=== PATIENT | female | born 1975 | race Caucasian/White ===

== ENCOUNTER 2017-11-16 14:59 | Emergency (ER) | payer OTHER ==
[~2017-11-16] VITALS: Ht 162.6 cm; Wt 140.6 kg
[2017-11-16] MEDS ORDERED: ASPIRIN 81 MG CHEW TAB PO ONE (15:15)
[2017-11-16 15:36] LABS: BASOPHILS % 0.7 % (0.0-1.0); EOSINOPHILS # (AUTO) 0.3 (0.0-0.4); EOSINOPHILS % 4.3 % (0.0-6.0); HEMATOCRIT 36.4 % (34.2-44.1); HEMOGLOBIN 11.1 g/dL (12.0-16.0); LYMPHOCYTES # (AUTO) 2.1 (1.0-3.2); LYMPHOCYTES % 35.3 % (18.0-39.1); MEAN CORPUSCULAR HEMOGLOBIN 23.5 pg (28-32); MEAN CORPUSCULAR HGB CONC 30.5 g/dL (31-35); MONOCYTES # (AUTO) 0.5 (0.2-0.8); MONOCYTES % 7.6 % (4.4-11.3); NEUTROPHILS # (AUTO) 3.2 (2.1-6.9); NEUTROPHILS % 51.9 % (38.7-80.0); PLATELET COUNT 213 x10e3/uL (140-360); RED BLOOD COUNT 4.73 x10e6/uL (3.6-5.1); RED CELL DISTRIBUTION WIDTH 16.6 % (11.7-14.4)
[2017-11-16 15:47] LABS: INR 1.01; PROTHROMBIN TIME 12.5 seconds (11.9-14.5)
[2017-11-16 15:48] LABS: PARTIAL THROMBOPLASTIN TIME 26.7 seconds (23.8-35.5)
[2017-11-16 15:54] LABS: ALANINE AMINOTRANSFERASE 34 IU/L (0-55); ALBUMIN 3.8 g/dL (3.5-5.0); ALBUMIN/GLOBULIN RATIO 0.9 (0.8-2.0); ALKALINE PHOSPHATASE 95 IU/L (40-150); ANION GAP 16.8 mmol/L (8-16); BLOOD UREA NITROGEN 15 mg/dL (7-26); BUN/CREATININE RATIO 18 (6-25); CALCIUM 9.2 mg/dL (8.4-10.2); CARBON DIOXIDE 21 mmol/L (22-29); CHLORIDE 108 mmol/L (98-107); CREATINE KINASE 378 IU/L (29-168); CREATININE, SERUM 0.82 mg/dL (0.57-1.11); EST GLOMERULAR FILTRATION RATE > 60 ML/MIN (60-); GLUCOSE 107 mg/dL (74-118); POTASSIUM 4.8 mmol/L (3.5-5.1); SODIUM 141 mmol/L (136-145)
--- NOTE | 2017-11-16 16:45 | Diagnostic Imaging Report ---
PROCEDURE: A single AP view of the chest. COMPARISON: None. INDICATIONS: CHEST PAIN FINDINGS: Lines/tubes: None. Lungs: The lungs are well inflated and clear. There is no evidence of pneumonia or pulmonary edema. Pleura: There is no pleural effusion or pneumothorax. Heart and mediastinum: The heart and the mediastinum are unremarkable. Bones: No acute bony abnormality. IMPRESSION: 1. No acute cardiopulmonary disease. Dictated by: Rajiv Moncada M.D. on 11/16/2017 at 16:51 Electronically approved by: Rajiv Moncada M.D. on 11/16/2017 at 16:51
[2017-11-16 17:02] LABS: COLOR,URINE YELLOW (YELLOW)
[2017-11-16 17:03] LABS: BILIRUBIN,URINE NEGATIVE (NEGATIVE); CLARITY,URINE CLEAR (CLEAR); KETONES,URINE NEGATIVE (NEGATIVE); LEUKOCYTE ESTERASE ,URINE NEGATIVE (NEGATIVE); NITRITE,URINE NEGATIVE (NEGATIVE); PROTEIN,URINE DIPSTICK NEGATIVE (NEGATIVE); URINE UROBILINOGEN 0.2 mg/dL (0.2 - 1)
[2017-11-16 17:13] LABS: BACTERIA,URINE MODERATE /HPF; EPITHELIAL CELLS,URINE MODERATE /LPF; TRANSITIONAL EPI CELLS,URINE FEW
[2017-11-16 19:06] VITALS: BP 124/82
== END 2017-11-16 19:07 | disposition home or self-care (01) ==
LOC: ER 14:59
DX: R07.89 Other chest pain (principal); F41.9 Anxiety disorder, unspecified
CPT/HCPCS: 36415; 71045; 80053; 81001; 82550; 82553; 84484; 84702; 85025; 85610; 85730; 87086; 93005; 99284

== ENCOUNTER → 2018-06-08 | Day surgery (SDC) | payer OTHER ==
[~2018-06-08] MED LIST: ASPIR 8181 MG PO; DONNATAL/LIDOCAINE/MAALOX 30 ML SUSP PO NR; FENTANYL CITRATE/PF 100MCG/2 ML INJ ONE; HYDROCHLOROTHIA25 MG PO; HYOSCYAMINE SULFATE 0.5 MG/ML INJ ONE; KETAMINE HCL INJ 50 MG/ML 10 ML VIAL ONE; LEVOXYL112 MCG PO; METOCLOPRAMIDE HCL 10 MG/2ML VIAL ONE; MIDAZOLAM HCL 2 MG/2 ML VIAL ONE; OMEPRAZOLE40 MG PO; PROPOFOL IV EMULSION 10 MG/ML 50 ML VIAL ONE
--- OUTSIDE RECORDS SUMMARY | 2018-06-08 10:59 | XMS REPORT ---
Author Author [facility] Address Unknown Phone Unavailable Care Team Providers [facility] [employer] [facility] Teacher Name Role Phone Rebeca LARA Unavailable Unavailable Problems This patient has no known problems. Allergies, Adverse Reactions, Alerts This patient has no known allergies or adverse reactions. Medications This patient has no known medications. Results Test Description Test Time Test Comments Text Results Atomic Results Result Comments CHEST SINGLE (PORTABLE) 2017-11-16 16:51:00 [place] [address] Patient Name: MORGAN REEDER MR #: [id number] : 1975 Age/Sex: 42/F Req #: [id number] Adm Physician: Ordered by: GABO BEJARANO RECLAMATION KETTLE TENDER Report #: [id number] Location: ER Room/Bed: Procedure: [id number] DX/CHEST SINGLE (PORTABLE) Exam Date: 11/16/17 Exam Time: 1620 REPORT STATUS: Signed PROCEDURE: A single AP view of the chest. COMPARISON: None. INDICATIONS: CHEST PAIN FINDINGS: Lines/tubes: None. Lungs: The lungs are well inflated and clear. There is no evidence of pneumonia or pulmonary edema. Pleura: There is no pleural effusion or pneumothorax. Heart and mediastinum: The heart and the mediastinum are unremarkable. Bones: No acute bony abnormality. IMPRESSION: 1. No acute cardiopulmonary disease. Dictated by: Javy Moncada M.D. on 11/16/2017 at 16:51 Electronically approved by: Javy Moncada M.D. on 11/16/2017 at 16:51 Dictated By: JAVY MONCADA MD 50 Transcribed By: NAI on 11/16/171650 COPY TO: GABO BEJARANO NP
[2018-06-08 14:55] VITALS: BP 113/80
--- NOTE | 2018-06-09 04:14 | Operative Report ---
DATE OF PROCEDURE: 06/08/2018 SURGEON: Pieter Sanchez MD PROCEDURES: Esophagogastroduodenoscopy with biopsies and colonoscopy. INDICATIONS FOR EGD: Upper abdominal pain, nausea, and vomiting. INDICATIONS FOR COLONOSCOPY: Abdominal pain, history of bright red blood per rectum in the recent past. MEDICATION: The patient was done under MAC, please see anesthesiologist's note. PROCEDURE IN DETAIL: With the patient in the left lateral decubitus position, a flexible fiberoptic Olympus gastroscope was introduced into the esophagus under direct visualization without any difficulty. There was some patchy erythema noted in the distal esophagus. The scope was then advanced with ease into the stomach. Mucosa overlying the antrum revealed some patchy intense erythema and low-grade to moderate edema and biopsies were obtained and sent to stain for H pylori. There was some mucosa overlying the mid and distal body along the anterior wall, was somewhat atrophic and the biopsies were obtained to rule out atrophic gastritis. There was an extrinsic compression also noted against the antrum, anterior wall. The scope was then advanced with ease to the second portion of the duodenum. Biopsies were obtained. The scope was then advanced with ease to the second portion of the duodenum. The mucosa overlying the second portion and the duodenal bulb revealed some patchy, mild inflammatory changes, and biopsies were obtained. The scope was then withdrawn back into the stomach and retroflexed. Mucosa overlying the fundus and the cardia appeared to be within normal limits. The scope was then straightened out, it was subsequently withdrawn. The patient tolerated the procedure well. IMPRESSION: 1. Mild distal esophagitis. 2. Rule out atrophic gastritis, body. 3. Extrinsic compression, antrum, anterior wall. 4. Duodenitis, mild. PLAN: Followup histology. Increase omeprazole to 40 mg one p.o. a.c. b.i.d. The patient will need a CT scan of the abdomen to delineate the nature of the extrinsic compression against the anterior wall of the antrum. The patient was then turned around after adequate lubrication of the anal canal. A flexible fiberoptic Olympus colonoscope was inserted into the rectum with ease and advanced all the way to the cecum, it was then withdrawn slowly. Mucosa overlying the cecum, ascending colon, transverse, descending, sigmoid, and rectum appeared to be within normal limits. The scope was then retroflexed into the distal rectum. Moderate-sized internal hemorrhoids were noted, none of which was actively bleeding. The scope was then straightened out, it was subsequently withdrawn. The patient tolerated the procedure well. IMPRESSION: Internal hemorrhoids, none actively bleeding. PLAN: Initiate high-fiber and low-fat diet. Initiate high-fiber supplement. The patient might benefit from a followup colonoscopy in 10 years. MD RICHARD Jasmine/VELIA /[id number] cc: Marcus Rogers DO
== END | disposition home or self-care (01) ==
LOC: OR 10:57
PROVIDERS: ATTEND Internal Medicine Gastroenterology
DX: K29.70 Gastritis, unspecified, without bleeding (principal); K31.89 Other diseases of stomach and duodenum; K20.9 Esophagitis, unspecified; K29.80 Duodenitis without bleeding; K64.8 Other hemorrhoids; G47.33 Obstructive sleep apnea (adult) (pediatric); E03.9 Hypothyroidism, unspecified; R03.0 Elevated blood-pressure reading, without diagnosis of hypertension; Z01.810 Encounter for preprocedural cardiovascular examination; Z79.82 Long term (current) use of aspirin; E66.01 Morbid (severe) obesity due to excess calories; Z68.43 Body mass index [BMI] 50.0-59.9, adult
CPT/HCPCS: 43239; 45378; 93005; J1980; J2250; J2704; J2765

== ENCOUNTER 2018-06-15 13:34 | Inpatient (IN) | payer OTHER ==
[~2018-06-15] VITALS: Ht 162.6 cm; Wt 132.4 kg
[~2018-06-15 13:34] MED LIST changes: -DONNATAL/LIDOCAINE/MAALOX 30 ML SUSP PO NR; -FENTANYL CITRATE/PF 100MCG/2 ML INJ ONE; -HYOSCYAMINE SULFATE 0.5 MG/ML INJ ONE; -KETAMINE HCL INJ 50 MG/ML 10 ML VIAL ONE; -METOCLOPRAMIDE HCL 10 MG/2ML VIAL ONE; -MIDAZOLAM HCL 2 MG/2 ML VIAL ONE; -PROPOFOL IV EMULSION 10 MG/ML 50 ML VIAL ONE
[2018-06-15 14:36] LABS: BASOPHILS % 0.3 % (0.0-1.0); EOSINOPHILS # (AUTO) 0.3 (0.0-0.4); EOSINOPHILS % 4.2 % (0.0-6.0); HEMATOCRIT 36.2 % (34.2-44.1); HEMOGLOBIN 10.7 g/dL (12.0-16.0); LYMPHOCYTES # (AUTO) 2.2 (1.0-3.2); LYMPHOCYTES % 34.6 % (18.0-39.1); MEAN CORPUSCULAR HEMOGLOBIN 22.7 pg (28-32); MEAN CORPUSCULAR HGB CONC 29.6 g/dL (31-35); MEAN CORPUSCULAR VOLUME 76.7 fL (81-99); MONOCYTES # (AUTO) 0.4 (0.2-0.8); MONOCYTES % 6.8 % (4.4-11.3); NEUTROPHILS # (AUTO) 3.4 (2.1-6.9); NEUTROPHILS % 53.5 % (38.7-80.0); PLATELET COUNT 379 x10e3/uL (140-360); RED BLOOD COUNT 4.72 x10e6/uL (3.6-5.1); RED CELL DISTRIBUTION WIDTH 16.8 % (11.7-14.4)
[2018-06-15 14:53] LABS: CLARITY,URINE CLEAR (CLEAR); COLOR,URINE YELLOW (YELLOW); KETONES,URINE NEGATIVE (NEGATIVE); LEUKOCYTE ESTERASE ,URINE NEGATIVE (NEGATIVE); NITRITE,URINE NEGATIVE (NEGATIVE); PROTEIN,URINE DIPSTICK NEGATIVE (NEGATIVE); URINE UROBILINOGEN 1 mg/dL (0.2 - 1)
[2018-06-15 14:54] LABS: PREGNANCY TEST, URINE NEGATIVE (NEGATIVE)
[2018-06-15 14:57] LABS: ALANINE AMINOTRANSFERASE 40 IU/L (0-55); ALBUMIN 3.1 g/dL (3.5-5.0); ALBUMIN/GLOBULIN RATIO 0.7 (0.8-2.0); ALKALINE PHOSPHATASE 115 IU/L (40-150); ANION GAP 16.8 mmol/L (8-16); BLOOD UREA NITROGEN 8 mg/dL (7-26); BUN/CREATININE RATIO 10 (6-25); CARBON DIOXIDE 28 mmol/L (22-29); CHLORIDE 97 mmol/L (98-107); CREATININE, SERUM 0.78 mg/dL (0.57-1.11); EST GLOMERULAR FILTRATION RATE > 60 ML/MIN (60-); GLUCOSE 93 mg/dL (74-118); SODIUM 139 mmol/L (136-145)
[2018-06-15 15:03] LABS: BACTERIA,URINE FEW /HPF; BILIRUBIN,URINE NEGATIVE (NEGATIVE); EPITHELIAL CELLS,URINE MODERATE /LPF
[2018-06-15 15:05] LABS: POTASSIUM 2.8 mmol/L (3.5-5.1)
[2018-06-15 15:42] LABS: AMYLASE 41 U/L (25-125); LIPASE 47 U/L (8-78)
--- NOTE | 2018-06-15 16:30 | Diagnostic Imaging Report ---
EXAM: CT Abdomen and Pelvis WITH contrast INDICATION: Abdominal Pain COMPARISON: None. TECHNIQUE: Abdomen and pelvis were scanned utilizing a multidetector helical scanner from the lung base to the pubic symphysis after administration of IV contrast. Coronal and sagittal reformations were obtained. Routine protocol was performed. Scan was performed when during portal venous phase. IV CONTRAST: 100 cc of Isovue 370 ORAL CONTRAST: Water COMPLICATIONS: None RADIATION DOSE: Total DLP: 896.4 mGy*cm Dose modulation, iterative reconstruction, and/or weight based adjustment of the mA/kV was utilized to reduce the radiation dose to as low as reasonably achievable. FINDINGS: LINES and TUBES: None. LOWER THORAX: Patchy dependent atelectasis. HEPATOBILIARY: Diffuse mild fatty liver. No evidence of focal lesion. No biliary ductal dilation. GALLBLADDER: There is a gallstone measuring up to 3.3 cm at the gallbladder neck with associated gallbladder distention and wall thickening measuring up to 8 mm. There is mild surrounding edema and inflammatory changes. SPLEEN: No splenomegaly. PANCREAS: No focal masses or ductal dilatation. ADRENALS: No adrenal nodules KIDNEYS/URETERS: Kidneys enhance symmetrically. No evidence of hydronephrosis, solid mass, or stone. GI TRACT: No evidence of wall thickening or distension. Appendix is normal. PELVIC ORGANS/BLADDER: Unremarkable. LYMPH NODES: No lymphadenopathy. VESSELS: Unremarkable. PERITONEUM / RETROPERITONEUM: No free air or fluid. BONES AND SOFT TISSUES: No acute osseous abnormality. No suspicious lytic or blastic lesions. Mild scattered degenerative changes. CONCLUSION: CT findings of acute calculus cholecystitis. No evidence of abscess. Diffuse mild fatty liver. Signed by: Dr. Rika Marks MD on 06/15/2018 4:27 PM
[2018-06-15] MEDS ORDERED: PIPER-TAZ 3.375 GM 50 ML IV SCH (17:00)
[2018-06-15] MEDS ORDERED: SODIUM CHLORIDE 0.9% IV SCH (17:17)
[2018-06-15] MEDS ORDERED: POTASSIUM CHLORIDE 20 MEQ TAB CR PO STA (17:17)
[2018-06-15] MEDS ORDERED: POTASSIUM CHLORIDE IV SCH (17:17)
[2018-06-15] MEDS ORDERED: HYDROMORPHONE 1MG/1ML INJ IV PRN (17:30)
[2018-06-15] MEDS ORDERED: POTASSIUM CHL 40 MEQ in SODIUM CHLORIDE 0.9% 1000ML 1,000 ML IV SCH (17:30)
[2018-06-15] MEDS ORDERED: SODIUM CHLORIDE 0.9% 250ML 250 ML ONE (17:35)
[2018-06-15] MEDS ORDERED: HYDROMORPHONE 2MG/ML 2 MG/ML ML IV PRN (17:45)
[2018-06-15] MEDS ORDERED: POTASSIUM CHLORIDE 40 MEQ in SODIUM CHLORIDE 0.9% 1000ML 1,000 ML IV SCH (17:45)
[2018-06-15] MEDS ORDERED: POTASSIUM CHLORIDE 10MEQ/100ML 100 ML IV SCH ×2 (18:00)
[2018-06-15] MEDS ORDERED: IOPAMIDOL 370 MG/ML 200 ML INFUS..BTL INJ ONE (18:18)
[2018-06-15] MEDS ORDERED: SODIUM CHLORIDE 0.9% 50ML 50 ML ONE (18:18)
--- NOTE | 2018-06-15 18:23 | NUR ---
Patient admitted to unit from ER. patient arrived via stretcher. patient has been c/o abdominal pain for 1 week. pain noted on the right lower quadrant. Patient is NPO. Patient lung rock clear to auscultation. Bowel sounds present x4 and active. Patient c/o pain when she takes a deep breath. No nausea or vomiting at this time. Right AC IV in place with IV fluids infusing. patient ambulates on her own. no s/s of distress noted
[2018-06-15 18:40] VITALS: BP 135/89
[2018-06-15 18:44] VITALS: BP 135/89
--- NOTE | 2018-06-15 18:46 | Consultation ---
DATE OF CONSULTATION: REASON FOR CONSULTATION: Acute cholecystitis. HISTORY OF PRESENT ILLNESS: The patient is a 42-year-old female, admitted complaining of abdominal pain for several days located in the upper abdomen. She presented today to the emergency room because of the pain. A CT scan performed that revealed a large stone in the neck and changes consistent with acute cholecystitis. Because of this, she is being admitted. The patient's past history is significant for morbid obesity. She has a BMI of 53. She denies any medical problems; however, according to the ER records, there is a history of hypertension, hypothyroidism, and gastroesophageal reflux. She has history of back problems. No previous abdominal surgeries. ALLERGIES: SHE HAS NO KNOWN ALLERGIES. SOCIAL HISTORY: She does not drink and does not smoke. REVIEW OF SYSTEMS: Significant for what has been stated. PHYSICAL EXAMINATION: GENERAL: Reveals a 42-year-old morbidly obese female, who is in no acute distress. VITAL SIGNS: Temperature 98.4, blood pressure 139/105, and pulse oximeter 99. HEAD, EYES, EARS, NOSE, AND THROAT: Reveals no acute process. LUNGS: Clear. HEART: Reveals regular rhythm. ABDOMEN: Soft. There are no peritoneal signs at this point, but there is tenderness on deep palpation. LABORATORY DATA: Admission laboratories revealed a white count of 6.3 with a platelet count of 379. The admission chemistries revealed a low potassium of 2.8 with a normal set of liver function tests. The CT scan has been discussed. ASSESSMENT: Acute cholecystitis secondary to cholelithiasis, morbid obesity. PLAN: The plan is to replenish the potassium, hydrate the patient, and then proceed with laparoscopic cholecystectomy, possible open cholecystectomy in a.m. tomorrow. MD PRINCESS Ch/VELIA /[id number]
[2018-06-15] MEDS ORDERED: POTASSIUM CHLORIDE 20 MEQ TAB CR PO ONE (19:00)
[2018-06-15] MEDS: POTASSIUM CHLORIDE 20 MEQ in LACTATED RINGER'S 1,000 ML IV SCH (19:06)
[2018-06-15 20:00] VITALS: BP 121/70
[2018-06-15] MEDS: METRONIDAZOLE 750MG/NS 150ML 150 ML IV SCH (20:00)
--- NOTE | 2018-06-15 20:00 | NUR ---
ASSESSMENT DONE.AMBULATE.NO PAIN VOICED.VOIDED.BED LOCKED AN DIN LOWEST POSITION.PHONE AND CALL LIGHT WITHIN REACH.INSTRUCTED TO CALL FOR ASSISTANCE NEEDED. ON NPO.IV LAC #18 G PATENT.
[2018-06-15] MEDS: CEFTRIAXONE SOD 2 GM/NS 100 ML 100 ML IV SCH (20:10)
[2018-06-15 22:20] VITALS: BP 121/70
[2018-06-16] VITALS: BP 124/62
[2018-06-16] MEDS: POTASSIUM CHLORIDE 20 MEQ in LACTATED RINGER'S 1,000 ML IV SCH ×2 (02:00→10:10)
[2018-06-16] MEDS: METRONIDAZOLE 750MG/NS 150ML 150 ML IV SCH ×3 (02:00→21:53)
[2018-06-16 04:00] VITALS: BP 110/57
[2018-06-16 05:45] LABS: BASOPHILS % 0.4 % (0.0-1.0); EOSINOPHILS # (AUTO) 0.3 (0.0-0.4); EOSINOPHILS % 5.3 % (0.0-6.0); HEMATOCRIT 31.8 % (34.2-44.1); HEMOGLOBIN 9.2 g/dL (12.0-16.0); LYMPHOCYTES # (AUTO) 1.8 (1.0-3.2); LYMPHOCYTES % 35.6 % (18.0-39.1); MEAN CORPUSCULAR HEMOGLOBIN 22.4 pg (28-32); MEAN CORPUSCULAR HGB CONC 28.9 g/dL (31-35); MEAN CORPUSCULAR VOLUME 77.6 fL (81-99); MONOCYTES # (AUTO) 0.4 (0.2-0.8); MONOCYTES % 8.6 % (4.4-11.3); NEUTROPHILS # (AUTO) 2.5 (2.1-6.9); NEUTROPHILS % 49.5 % (38.7-80.0); PLATELET COUNT 336 x10e3/uL (140-360)
[2018-06-16 06:03] LABS: ANION GAP 12.3 mmol/L (8-16); BLOOD UREA NITROGEN 8 mg/dL (7-26); BUN/CREATININE RATIO 10 (6-25); CALCIUM 8.8 mg/dL (8.4-10.2); CARBON DIOXIDE 28 mmol/L (22-29); CHLORIDE 105 mmol/L (98-107); CREATININE, SERUM 0.78 mg/dL (0.57-1.11); EST GLOMERULAR FILTRATION RATE > 60 ML/MIN (60-); GLUCOSE 99 mg/dL (74-118); POTASSIUM 3.3 mmol/L (3.5-5.1); SODIUM 142 mmol/L (136-145)
--- NOTE | 2018-06-16 06:40 | NUR ---
RECEIVED NEW ORDERS FROM DR. AVILA .
--- NOTE | 2018-06-16 06:50 | NUR ---
RESTED WELL DURING NIGHT.REPORT GIVEN TO THE ONCOMING RN.WALKING ROUNDS DONE.STABLE CONDITION.
--- NOTE | 2018-06-16 07:00 | NUR ---
bedside rounds complete no distress noted, updated on poc voiced understanding, denies pain at this time, call light in reach will continue to monitor
[2018-06-16 07:12] LABS: FERRITIN 40.94 ng/mL (4.63-204.00)
[2018-06-16 07:25] LABS: FOLATE 11.7 ng/mL (7.0-15.4)
[2018-06-16] MEDS ORDERED: POTASSIUM CHLORIDE 20MEQ/100ML 100 ML IV ONE (07:30)
[2018-06-16 07:39] LABS: PLATELET ESTIMATE ADEQUATE; PLATELET MORPHOLOGY COMMENT NORMAL; RBC MORPHOLOGY COMMENT NORMAL
[2018-06-16 07:48] VITALS: BP 124/70
[2018-06-16] MEDS ORDERED: BUPIVACAINE 0.25%/EPI 30ML SDV INJ ONE (08:37)
[2018-06-16] MEDS ORDERED: SODIUM CHLORIDE 0.9% 250ML 250 ML ONE (09:58)
[2018-06-16 11:00] VITALS: BP 124/70
[2018-06-16] MEDS ORDERED: LEVOFLOXACIN 250MG/D5W 50ML 50 ML ONE (13:25)
[2018-06-16] MEDS ORDERED: LEVOFLOXACIN 500MG/D5W 100ML 100 ML IV ONE (13:25)
[2018-06-16] MEDS ORDERED: METOCLOPRAMIDE HCL 10 MG/2ML VIAL ONE (14:29)
[2018-06-16] MEDS ORDERED: ONDANSETRON HCL INJ 2MG/ML 2ML 2 MG/ML VIAL ONE ×2 (14:29→15:03)
[2018-06-16] MEDS ORDERED: MEPERIDINE HCL INJ 25 MG/ML VIAL ONE (14:33)
[2018-06-16] MEDS ORDERED: ROCURONIUM BROMIDE 10 MG/ML 5ML VIAL ONE (15:03)
[2018-06-16] MEDS ORDERED: FENTANYL CITRATE/PF 100MCG/2 ML INJ ONE (15:03)
[2018-06-16] MEDS ORDERED: LIDOCAINE HCL 2% LOCAL INJ 5 ML SDV VIAL INJ ONE (15:03)
[2018-06-16] MEDS ORDERED: GLYCOPYRROLATE INJ 1MG/ 5 ML SYR ONE (15:03)
[2018-06-16] MEDS ORDERED: PROPOFOL IV EMULSION 10 MG/ML 20 ML VIAL ONE (15:03)
[2018-06-16] MEDS ORDERED: NEOSTIGMINE 5 MG/5ML SYR ONE (15:03)
[2018-06-16] MEDS ORDERED: DESFLURANE 240 ML BTL INH ONE (15:03)
[2018-06-16] MEDS ORDERED: MIDAZOLAM HCL 2 MG/2 ML VIAL ONE (15:03)
[2018-06-16] MEDS ORDERED: DEXAMETHASONE SOD PHOS INJ 4 MG/ML VIAL ONE (15:03)
[2018-06-16 16:50] VITALS: BP 126/71
--- NOTE | 2018-06-16 16:51 | Operative Report ---
DATE OF PROCEDURE: 06/16/2018 SURGEON: Geovanny Collado MD PREOPERATIVE DIAGNOSIS: Acute cholecystitis. POSTOPERATIVE DIAGNOSIS: Acute cholecystitis with empyema of the gallbladder. PROCEDURE PERFORMED: Laparoscopic cholecystectomy and drainage of hydrops. MULT AU MATIC OPERATOR: ESTIMATED BLOOD LOSS: Minimal. DRAINS: Two 10 mm flat Oscar-Raines drains. COMPLICATION: None. INDICATION AND FINDINGS: Morbidly obese with a BMI of 53, female admitted with cholecystitis from the emergency room. She had gallstones, normal duct, normal liver chemistries, INTRAOPERATIVE FINDINGS: Acute cholecystitis with a very thickened gallbladder wall. Two very large stones, no ductal dilatation. The cystic duct was very very short and nondilated. There was no common bile duct dilatation either. There was an empyema of the gallbladder present and this was decompressed. DESCRIPTION OF PROCEDURE: With the patient lying on the operative table in the supine position and after administration of general endotracheal anesthesia, she was prepped and draped for laparoscopic cholecystectomy. The procedure was begun by establishing the pneumoperitoneum in the right upper quadrant midclavicular line because of very large size of the patient. After we did that, we placed an umbilical trocar under direct vision with the camera, using a 10 mm trocar, and a 10 mm subxiphoid port and then we placed a right anterior axillary line trocar 5 mm size as well as a left upper quadrant. Due to the large size of the patient, we had to decompress the gallbladder to be able to grasp it, which was long and full of pus and clear fluid, combination of both, and then we had to separate the gallbladder sharply from the stomach and the transverse colon where there was impression from the large hydrops in the transverse colon. After we did that, we exposed the hepatoduodenal ligament and then identified the cystic duct, the cystic artery, and a wedge of the liver as well as the common hepatic and common bile duct and then at that point, we clipped the cystic duct three times distally and transected with three titanium clips as well as with the cystic artery. Then we tediously removed the gallbladder from the liver bed using a combination of hydrodissection, electrocautery and traction until we detached the gallbladder from the liver bed, placed in an endobag and removed. After we did that, we irrigated the abdominal cavity especially gallbladder bed fossa. There was no evidence of bile leak or any bleeding. During the dissection, the part of the liver on the fundus of the gallbladder on the left side of the gallbladder medially, a small piece of the liver was stuck to the gallbladder and that came with the gallbladder. After we detached the gallbladder, placed it into endobag and removed it after enlarging the umbilical incision. As I said before, we inspected the operative field, there was no bile leak, no bleeding, no apparent bowel injury. At this point, we went ahead and placed two 10 mm flat Oscar-Raines drains to drain the gallbladder bed fossa, brought it out through the 5 mm trocars in the right upper quadrant, right anterior line and right midclavicular line and then secured there with 2-0 silk. We placed two Surgicels in the gallbladder and then released the pneumoperitoneum, closed the wounds using 0-Vicryl for the umbilical, used three 1 Vicryl for the umbilical fascia that had to be enlarged due to the large size of the gallbladder and then the subcutaneous tissue as well as the subxiphoid port was closed using 2-0 chromic and the skin was closed using yelena. Sterile dressing was applied. The drains were connected to self suction. The patient tolerated the procedure well, taken to recovery room in stable condition. The was informed of the intraoperative findings. MD PRINCESS Ch/VELIA /[id number]
[2018-06-16] MEDS: CEFTRIAXONE SOD 2 GM/NS 100 ML 100 ML IV SCH (18:00)
[2018-06-16 20:00] VITALS: BP 125/58
--- NOTE | 2018-06-16 20:00 | NUR ---
Patient laying in bed with HOB slightly elevated. No sob noted. no acute distress noted. Patient reports of pain at this time, 10/11, PRN-pain medication administered as ordered per MD. Reminded patient to utilize call light when assistance is needed. Bed at low position and locked. Patient in stable condition and will continue to monitor.
[2018-06-16] MEDS: HYDROMORPHONE 2MG/ML 2 MG/ML ML IV PRN (21:53)
[2018-06-16] MEDS: ONDANSETRON HCL INJ 2MG/ML 2ML 2 MG/ML VIAL IV PRN (21:53)
[2018-06-17] VITALS: BP 113/57
--- NOTE | 2018-06-17 00:33 | Diagnostic Imaging Report ---
EXAMINATION: CHEST X-RAY LINE PLACEMENT INDICATION: PICC Placement COMPARISON: None FINDINGS: TUBES and LINES: Right upper extremity PICC with distal tip projected on the cavoatrial junction. LUNGS: Suboptimal inflation. Bibasilar subsegmental atelectasis. There is no evidence of pneumonia or pulmonary edema. PLEURA: No pleural effusion or pneumothorax. HEART AND MEDIASTINUM: The cardiomediastinal silhouette is unremarkable. BONES AND SOFT TISSUES: No acute osseous lesion. Soft tissues are unremarkable. UPPER ABDOMEN: No free air under the diaphragm. IMPRESSION: Right upper extremity PICC with distal tip projected on the cavoatrial junction. Bibasilar atelectasis. Signed by: Dr. Niya Oakley M.D. on 06/17/2018 12:30 AM
[2018-06-17] MEDS: POTASSIUM CHLORIDE 20 MEQ in LACTATED RINGER'S 1,000 ML IV SCH ×2 (01:45→13:00)
[2018-06-17] MEDS: METRONIDAZOLE 750MG/NS 150ML 150 ML IV SCH ×3 (03:00→17:27)
[2018-06-17 04:00] VITALS: BP 118/57
[2018-06-17] MEDS: HYDROMORPHONE 2MG/ML 2 MG/ML ML IV PRN ×3 (05:17→16:45)
[2018-06-17] MEDS: ONDANSETRON HCL INJ 2MG/ML 2ML 2 MG/ML VIAL IV PRN ×3 (05:20→16:45)
[2018-06-17 09:08] VITALS: BP 105/59
[2018-06-17 09:11] LABS: BASOPHILS % 0.2 % (0.0-1.0); EOSINOPHILS # (AUTO) 0.1 (0.0-0.4); EOSINOPHILS % 0.7 % (0.0-6.0); HEMATOCRIT 31.3 % (34.2-44.1); LYMPHOCYTES # (AUTO) 1.4 (1.0-3.2); LYMPHOCYTES % 16.4 % (18.0-39.1); MEAN CORPUSCULAR HEMOGLOBIN 22.6 pg (28-32); MEAN CORPUSCULAR HGB CONC 28.8 g/dL (31-35); MEAN CORPUSCULAR VOLUME 78.4 fL (81-99); MONOCYTES # (AUTO) 0.7 (0.2-0.8); MONOCYTES % 7.8 % (4.4-11.3); NEUTROPHILS # (AUTO) 6.5 (2.1-6.9); NEUTROPHILS % 74.3 % (38.7-80.0); PLATELET COUNT 320 x10e3/uL (140-360); RED BLOOD COUNT 3.99 x10e6/uL (3.6-5.1); RED CELL DISTRIBUTION WIDTH 17.5 % (11.7-14.4)
[2018-06-17 09:37] LABS: ALANINE AMINOTRANSFERASE 35 IU/L (0-55); ALBUMIN 2.3 g/dL (3.5-5.0); ALBUMIN/GLOBULIN RATIO 0.6 (0.8-2.0); ALKALINE PHOSPHATASE 74 IU/L (40-150); ANION GAP 11.8 mmol/L (8-16); BLOOD UREA NITROGEN 12 mg/dL (7-26); BUN/CREATININE RATIO 15 (6-25); CALCIUM 8.3 mg/dL (8.4-10.2); CARBON DIOXIDE 26 mmol/L (22-29); CHLORIDE 106 mmol/L (98-107); CREATININE, SERUM 0.81 mg/dL (0.57-1.11); EST GLOMERULAR FILTRATION RATE > 60 ML/MIN (60-); GLUCOSE 111 mg/dL (74-118); POTASSIUM 3.8 mmol/L (3.5-5.1); SODIUM 140 mmol/L (136-145)
--- NOTE | 2018-06-17 10:30 | NUR ---
[place] discontinued as per order, tip intact, patient tolerated well, pt due to void [id number], will continue to monitor.
[2018-06-17 12:00] VITALS: BP 111/59
[2018-06-17 17:03] VITALS: BP 109/65
[2018-06-17] MEDS: CEFTRIAXONE SOD 2 GM/NS 100 ML 100 ML IV SCH (17:10)
[2018-06-17 20:00] VITALS: BP 138/75
[2018-06-18] VITALS: BP 153/83
--- NOTE | 2018-06-18 | NUR ---
Patient laying in bed with HOB slightly elevated. No sob noted. no acute distress noted.
[2018-06-18] MEDS: METRONIDAZOLE 750MG/NS 150ML 150 ML IV SCH ×2 (02:00→10:40)
[2018-06-18 04:00] VITALS: BP 134/71
[2018-06-18] MEDS: ONDANSETRON HCL INJ 2MG/ML 2ML 2 MG/ML VIAL IV PRN (05:00)
[2018-06-18] MEDS: HYDROMORPHONE 2MG/ML 2 MG/ML ML IV PRN (05:00)
[2018-06-18 05:52] LABS: BASOPHILS % 0.4 % (0.0-1.0); EOSINOPHILS # (AUTO) 0.2 (0.0-0.4); EOSINOPHILS % 3.1 % (0.0-6.0); HEMATOCRIT 27.3 % (34.2-44.1); LYMPHOCYTES # (AUTO) 1.2 (1.0-3.2); LYMPHOCYTES % 16.3 % (18.0-39.1); MEAN CORPUSCULAR HEMOGLOBIN 22.6 pg (28-32); MEAN CORPUSCULAR HGB CONC 29.3 g/dL (31-35); MEAN CORPUSCULAR VOLUME 77.1 fL (81-99); MONOCYTES # (AUTO) 0.6 (0.2-0.8); MONOCYTES % 7.5 % (4.4-11.3); NEUTROPHILS # (AUTO) 5.3 (2.1-6.9); PLATELET COUNT 293 x10e3/uL (140-360); RED BLOOD COUNT 3.54 x10e6/uL (3.6-5.1); RED CELL DISTRIBUTION WIDTH 17.7 % (11.7-14.4)
[2018-06-18 06:09] LABS: ALANINE AMINOTRANSFERASE 29 IU/L (0-55); ALBUMIN 2.2 g/dL (3.5-5.0); ALBUMIN/GLOBULIN RATIO 0.6 (0.8-2.0); ALKALINE PHOSPHATASE 67 IU/L (40-150); AMYLASE 31 U/L (25-125); ANION GAP 12.3 mmol/L (8-16); BLOOD UREA NITROGEN 11 mg/dL (7-26); BUN/CREATININE RATIO 14 (6-25); CALCIUM 7.7 mg/dL (8.4-10.2); CARBON DIOXIDE 25 mmol/L (22-29); CHLORIDE 105 mmol/L (98-107); CREATININE, SERUM 0.77 mg/dL (0.57-1.11); EST GLOMERULAR FILTRATION RATE > 60 ML/MIN (60-); GLUCOSE 103 mg/dL (74-118); LIPASE 17 U/L (8-78); POTASSIUM 3.3 mmol/L (3.5-5.1); SODIUM 139 mmol/L (136-145)
[2018-06-18 06:34] LABS: ANISOCYTOSIS SLIGHT; HYPOCHROMASIA SLIGHT; MICROCYTOSIS SLIGHT; PLATELET ESTIMATE ADEQUATE; PLATELET MORPHOLOGY COMMENT NORMAL; RBC MORPHOLOGY COMMENT NORMAL
--- NOTE | 2018-06-18 07:00 | NUR ---
BEDSIDE ROUNDS COMPLETE NO DISTRESS NOTED, UPDATED ON POC VOICED UNDERSTANDING, DENIES PAIN AT THIS TIME, CALL LIGHT IN REACH WILL CONTINUE TO MONITOR
[2018-06-18 07:36] VITALS: BP 129/63
[2018-06-18] MEDS: POTASSIUM CHLORIDE 20 MEQ in LACTATED RINGER'S 1,000 ML IV SCH (09:44)
[2018-06-18 10:20] VITALS: BP 129/63
[2018-06-18] MEDS ORDERED: POTASSIUM CHLORIDE 10MEQ EA PO ONE (12:00)
[2018-06-18 13:00] VITALS: BP 128/84
--- NOTE | 2018-06-18 14:50 | NUR ---
Visit made by the Spiritual Care Department Pastoral Visitor, Cece Trevino. PV provided pastoral presence, prayer, communion, hospitality, and supportive listening. Pastoral Visitor informed pt/family of the scope of [employer] and availability. XAVIER NORRIS [employer] Spiritual Care Department O: [phone] Pager: [phone] ([phone] number calling from)
--- NOTE | 2018-06-19 10:44 | Discharge Summary ---
ADMIT DIAGNOSES: 1. Acute cholecystitis. 2. Extreme obesity. 3. Hypertension. 4. Hypothyroidism. DISCHARGE DIAGNOSES: 1. Acute cholecystitis with empyema of the gallbladder. 2. Status post laparoscopic cholecystectomy and drainage of hydrops. 3. Hypertensive heart disease. 4. Extreme obesity. Body mass index of 50. 5. Hypothyroidism. HOSPITAL COURSE: This is a 42-year-old white woman, who was initially admitted to [facility] with a diagnosis of acute cholecystitis. During the surgery, she was actually found to have acute cholecystitis with empyema of the gallbladder. The patient underwent successful laparoscopic cholecystectomy and drainage of hydrops. The patient had two Oscar-Raines drains placed during the surgery. The surgery was performed successfully by her surgeon namely Dr. Geovanny Collado. The patient's brief hospitalization was unremarkable. On discharge, she was tolerating a full liquid diet. Prior to discharge, one Oscar-Raines drain was removed by the surgeon. CONDITION ON DISCHARGE: Stable. DISCHARGE MEDICATIONS: 1. Aspirin 81 mg daily. 2. Hydrochlorothiazide 25 mg daily. 3. Levothyroxine 112 mcg daily. 4. Omeprazole 40 mg daily. 5. Tylenol No. 3 one pill every 6 hours p.r.n. pain, #20 prescribed, no refills. FOLLOWUP INSTRUCTIONS: The patient is instructed to follow up with her surgeon namely Dr. Geovanny Collado on Wednesday, June 20, 2018, where on that visit, her second Oscar-Raines drain will be removed tentatively. MD ALISIA Sethi/VELIA /[id number] cc: MD Carlos Ch MD
== END 2018-06-18 14:36 | disposition home or self-care (01) | DRG 418 ==
LOC: ER 13:34 → ERHOLD 17:45 → MED/SURG 18:25
PROC: 0FT44ZZ Resection of Gallbladder, Percutaneous Endoscopic Approach (ICD-10-PCS; principal; 2018-06-15)
PROC: 0F9440Z Drainage of Gallbladder with Drainage Device, Percutaneous Endoscopic Approach (ICD-10-PCS; 2018-06-15)
PROC: 02HV33Z Insertion of Infusion Device into Superior Vena Cava, Percutaneous Approach (ICD-10-PCS; 2018-06-16)
DX: K80.12 Calculus of gallbladder with acute and chronic cholecystitis without obstruction (principal); K82.1 Hydrops of gallbladder; Z68.43 Body mass index [BMI] 50.0-59.9, adult; E66.01 Morbid (severe) obesity due to excess calories; I10 Essential (primary) hypertension; D64.9 Anemia, unspecified; G47.33 Obstructive sleep apnea (adult) (pediatric); E03.9 Hypothyroidism, unspecified
CPT/HCPCS: 36415; 36569; 71045; 74177; 80048; 80053; 81001; 81025; 82150; 82607; 82728; 82746; 83540; 83690; 84466; 85025; 85045; 88304; 93005; 99284; C1766; J0696; J1100; J1956; J2001; J2175; J2250; J2405; J2543; J2765; J3480; J7030; J7050; J7121; Q9967